=== PATIENT | female | born 1960 | race Caucasian/White ===

== ENCOUNTER → 2024-10-10 13:18 | Outpatient (REF) | payer OTHER, SELFPAY | LOC: HWWDC 13:18 | PROVIDERS: ATTENDING PHYSICIAN Obstetrics & Gynecology; FAMILY PHYSICIAN Family Medicine | DX: Z12.31 Encounter for screening mammogram for malignant neoplasm of breast (principal) | CPT/HCPCS: 77063; 77067 ==

== ENCOUNTER → 2024-11-14 14:09 | Outpatient (REF) | payer OTHER, SELFPAY | LOC: HWRAD 14:09 | PROVIDERS: ATTENDING PHYSICIAN Obstetrics & Gynecology; FAMILY PHYSICIAN Family Medicine | DX: Z78.0 Asymptomatic menopausal state (principal) | CPT/HCPCS: 77080 ==